=== PATIENT | female | born 1945 | race Caucasian/White ===

== ENCOUNTER 2022-04-16 20:20 | Observation (INO) | payer MEDICARE, SELFPAY ==
[2022-04-16 20:05] VITALS: BP 215/73; PULSE 67; RESP 18; TEMP 36.7; O2SAT 100
[2022-04-16 20:21] VITALS: PULSE 63; BMI 25.5
--- NOTE | 2022-04-16 20:57 | HP.PCM.HOS_ITS ---
HPI - General General Date of Admission: 04/16/22 Date of Service: 04/16/22 Chief Complaint: Vertigo HPI Alida CAMPA, is a 76 F with a significant history of hypertension; diabetes mellitus; and Vertigo who presents to the emergency department with multiple episodes of Vertigo that started a day before presentation. Patient presented to [facility] emergency department where she was transferred to our hospital for an MRI. Reportedly a day before her presentation she had 2 episodes of Vertigo and the day of presentation she also had another 2 episodes of Vertigo. Her episodes of vertigo occurs irrelevant of her standing or sitting. Of note while in bed at [facility] emergency ED in the hospital bed she had Vertigo. Associated with her Vertigo is mild nausea and headache. She denies any aggravating or ameliorating factor to her Vertigo. She reported years ago she had a Vertigo and was placed on meclizine. She was on meclizine at home but she thinks it might have . [facility] Medical History Diabetes HTN (hypertension) Vertigo Home Medications aspirin 81 mg tablet 81 mg PO DAILY 04/16/22 [History Last Taken Unknown] atenolol 50 mg tablet 100 mg PO DAILY Hypertension 04/16/22 [History Last Taken Unknown] dulaglutide 0.75 mg/0.5 mL subcutaneous pen injector (Trulicity) 0.75 mg subcut QWEEK 04/16/22 [History Last Taken Unknown] dupilumab 04/16/22 [History Last Taken Unknown] ferrous gluconate 324 mg (38 mg iron) tablet 324 mg PO DAILY 04/16/22 [History Last Taken Unknown] furosemide 20 mg tablet 20 mg PO DAILY Hypertension 04/16/22 [History Last Taken Unknown] glipizide 5 mg tablet 7.5 mg PO BID Diabetes 04/16/22 [History Last Taken Unknown] levothyroxine 125 mcg tablet 125 mcg PO DAILY Hypothyroidism 04/16/22 [History Last Taken Unknown] lisinopril 10 mg tablet 10 mg PO BID 04/16/22 [History Last Taken Unknown] metformin 1,000 mg tablet 1,000 mg PO BID Diabetes 04/16/22 [History Last Taken Unknown] simvastatin 80 mg tablet 80 mg PO DAILY Hyperlipidemia 04/16/22 [History Last Taken Unknown] Allergy/AdvReac Type Severity Reaction Status Date / Time Penicillins Allergy Hives Verified 04/16/22 20:47 Sulfa (Sulfonamide Allergy Anaphylaxis Verified 04/16/22 20:47 Antibiotics) Family History Other Cancer Diabetes Surgical History H/O knee surgery History of partial hysterectomy History of tonsillectomy Social History Smoking Status: Former smoker ROS ROS Narrative Pertinent positives and pertinent negatives as noted in HPI. All other systems were reviewed and are negative Vital Signs Vital Signs Vital Signs: Weight Weight: 59.3 kg Body Mass Index (BMI) 25.5 Physical Exam Narrative Physical exam: General: Well-nourished, well-developed. Head: Normocephalic, atraumatic, no tenderness Eyes: Vision is grossly intact. EOMI ENT, no trauma, moist mucous membranes, no rhinorrhea Neck: Nontender, full range of motion. CVS: Regular rate and rhythm. S1-S2 present. No murmur, gallop or rub. Respiratory : clear to auscultation bilaterally, chest wall nontender, no wheezing Abdomen: Soft, nontender, nondistended, normal bowel sounds, no masses : Deferred Back: Nontender, no CVA tenderness, no midline spinal tenderness, deformities, step-offs Extremities: Nontender full range of motion, no trauma Skin: Normal color, no trauma, abrasions Neuro: Alert, oriented, cranial nerves II through XII grossly intact. Ramses- Hallpike maneuver negative Psychiatry: Normal mood. Normal affect. Not depressed. Not anxious. Assessment & Plan Assessment/Plan (1) Vertigo: (2) Diabetes: (3) HTN (hypertension): PLAN: Plan Vertigo Order MRI and MRA of head and neck PRN meclizine ordered Serial NINDS NIH Scale ordered Negative CT at the outside hospital ED. CT head was independently reviewed. No acute process noted. No bleed noted. Lipid profile and A1c ordered. Home Daily aspirin statin continued Permissive hypertension. Control blood pressure with labetalol for systolic blood pressure of more than 220 or diastolic blood pressure of more than 120. MRI/MRA of head; brain; and neck. Hypertension Blood pressure is not within goal Home blood pressure managed head secondary to permissive hypertension. As needed hydralazine and labetalol for blood pressure control per stroke protocol. Diabetes mellitus Review of transfer records showed glucose of 295 Check A1C Monitor Accu-Cheks Correction scale insulin ordered. Glipizide continued. DVT Prophylaxis: Ordered Charges/Coding Visit Charges OBSV E&M: 28588 Initial observation care L3
[2022-04-16 22:00] VITALS: BP 198/57; PULSE 70; RESP 18; TEMP 36.7; O2SAT 98
[2022-04-16 23:00] VITALS: PULSE 66
[2022-04-16] MEDS: Insulin Lispro 100 UNIT/ML INSULN.PEN SC (23:17)
[2022-04-16] MEDS: Atorvastatin Calcium 40 MG Tablet PO (23:18)
[2022-04-17] VITALS (8 sets, daily range): BP systolic 150–186; BP diastolic 64–70; PULSE 56–64; RESP 16–20; TEMP 36.3–36.8; O2SAT 98–99; BMI 25.5
[2022-04-17 01:00] LABS: Bedside Glucose 241 mg/dL (74-106)
[2022-04-17] MEDS: Levothyroxine 125 MCG Tablet PO (06:15)
[2022-04-17 06:40] LABS: Bedside Glucose 144 mg/dL (74-106)
[2022-04-17 07:29] LABS: Absolute Lymphocyte Count 1.95 X10^3/uL (0.83-4.51); Absolute Neutrophil Count 3.4 X10^3/uL (2.0-7.7); Basophil# 0.05 X10^3/uL; Basophil% 0.7 % (0-1); Eosinophil# 0.35 X10^3/uL; Eosinophils% 5.2 % (0-5); Hematocrit 30.6 % (37-47); Lymphocyte # 1.95 X10^3/ul (0.83-4.51); Lymphocyte % 29.1 % (19-41); Mean Corp Hgb Conc 32.7 g/dL (32-36); Mean Corpuscular Hgb 28.7 pg (27.0-32.0); Mean Corpuscular Volume 87.9 fL (81-99); Mean Platelet Vol. 10.5 fl (6.2-12.0); Monocyte# 0.88 X10^3/uL; Monocyte% 13.1 % (0-10); NRBC Flagged by Analyzer 0 % (0-5); Neutrophil # 3.44 X10^3/uL (2.7-7.7); Neutrophil % 51.5 % (47-70); Platelet Count 204 K/mm3 (150-450); RBC Distribution Width CV 14.2 % (11.6-14.6); Red Blood Count 3.48 M/mm3 (4.2-5.4); White Blood Count 6.7 K/mm3 (4.4-11.0)
[2022-04-17 07:52] LABS: Anion Gap 7 (5-15); BUN 28 mg/dL (7-18); BUN/Creat Ratio 23.3 RATIO (10-20); Calcium,Total 9.2 mg/dL (8.5-10.1); Chloride 107 mmol/L (98-107); Cholesterol 171 mg/dL (200); EST Glomerular Filtration Rate 46 mL/min (>60); Est Glom Filt Rate - Afr Amer 56 mL/min (>60); Estimated Creatinine Clearance 27.75 ml/min; Glucose 138 mg/dL (74-106); High Density Lipoprotein 49 mg/dL; Potassium 4.6 mmol/L (3.5-5.1); Sodium Level 143 mmol/L (136-145); Triglycerides 161 mg/dL; Very Low Density Lipoprotein 32 mg/dL (5-40)
[2022-04-17 08:07] LABS: Hemoglobin A1c 7.3 % (3.8-5.6)
[2022-04-17] MEDS: Aspirin 81 MG TAB.CHEW PO (08:25)
[2022-04-17] MEDS: glipiZIDE 5 MG Tablet 7.5 MG PO ×2 (08:25→16:45)
[2022-04-17] MEDS: Furosemide 20 MG Tablet PO (08:25)
--- NOTE | 2022-04-17 09:59 | NURSING ---
Pt just updates this nurse that she had another dizzy spell about 5 minutes after 0900... but it doesn't last long. This nurse explains to pt to notify nurse when next one happens right away. Pt demonstrates understanding and states that she will
--- NOTE | 2022-04-17 10:50 | MRI_ITS ---
STUDY: MRA OF THE HEAD WITHOUT CONTRAST REASON FOR EXAM: Female, 76 years old. CVA TECHNIQUE: 3-D [id number] (TOF) imaging was performed with MIPs. The study was performed unenhanced. COMPARISON: MRI of the brain dated April 17, 2022 FINDINGS: Normal bilateral petrous carotid arteries. There is atheromatous plaque formation of the right cavernous carotid artery, with a mild stenosis (less than 50%). There is atheromatous plaque formation of the left cavernous carotid artery, with a mild stenosis (less than 50%). Normal right A1 segments of the anterior cerebral artery. Normal left A1 segments of the anterior cerebral artery. Normal intact anterior communicating artery (ACOM). Normal bilateral A2 segments of the anterior cerebral arteries. Normal right M1 and M2 segments of the middle cerebral arteries, with a normal M1 bifurcation. Normal left M1 and M2 segments of the middle cerebral arteries, with a normal M1 bifurcation. There is non-visualization of the right posterior communicating artery (PCOM). There is a persistent origin of the left posterior cerebral artery with absence of the P1 segment of the left posterior cerebral artery. There is a small atretic right vertebral artery with a dominant left vertebral artery. Normal basilar artery with a normal basilar bifurcation. The visualized bilateral superior cerebellar (SCA) arteries are normal. Normal bilateral P1, P2 and visualized P3 segments of the posterior cerebral arteries. There is no demonstrated aneurysm of the [place]. There is no major vessel occlusion or hemodynamically significant stenosis. MRI/MRA Head ONLY without Contrast IMPRESSION: 1. There is no demonstrated aneurysm of the [place]. There is no major vessel occlusion or hemodynamically significant stenosis. Electronically Signed: Sebas Alba MD at 13:09 EDT ,
--- NOTE | 2022-04-17 11:05 | MRI_ITS ---
STUDY: MRI BRAIN WITHOUT CONTRAST REASON FOR EXAM: Female, 76 years old. cva Other, Vertigo x 2-3 days. No previous imaging TECHNIQUE: Standardized multiplanar fat and water weighted pulse sequences were obtained. COMPARISON: None. FINDINGS: There is mild cerebral atrophy with widening of the extra-axial spaces and ventricular dilatation. There are a limited number of small white matter hyperintensities, distributed throughout the deep white matter tracts of the cerebral hemispheres, consistent with mild chronic white matter ischemic changes. There is no evidence for recent intracranial ischemia or other cause of cytotoxic edema on diffusion weighted imaging (DWI). Normal T2* images of the brain without demonstrated susceptibility artifact. There is no demonstrated hemosiderin stain. Normal bilateral basal ganglia. Normal thalami. There is no extra-axial fluid accumulation. Normal flow voids within the major intracranial circulation suggesting patency by spin echo criteria. Normal sella turcica, pituitary gland, infundibular stalk, optic chiasm and hypothalamus. Normal tectal plate and pineal gland. Normal midbrain, gonzález and medulla. Normal cerebellum. Normal basal cisterns. Normal bilateral temporal bones. Normal bilateral internal auditory canals. No demonstrated orbital abnormality, within the constraints of a routine brain study. Normal visualized paranasal sinuses. Normal calvarium and skull base. Normal visualized soft tissue structures. Normal visualized upper cervical spine. MRI/Brain without Contrast IMPRESSION: 1. Involutional and chronic ischemic changes of the brain, as described above. 2. No demonstrated acute infarct or intracranial hemorrhage Electronically Signed: Sebas Alba MD at 13:07 EDT ,
--- NOTE | 2022-04-17 11:30 | MRI_ITS ---
STUDY: MRA NECK WITHOUT CONTRAST REASON FOR EXAM: Female, 76 years old. CVA TECHNIQUE: Source images were obtained, MIPs were performed. The study was performed unenhanced. COMPARISON: None. FINDINGS: RIGHT CAROTID ARTERIES: Normal right common carotid artery (CCA). Normal right common carotid bulb. Normal origin of the right internal carotid (ICA) artery without a hemodynamically significant stenosis. Normal visualized cervical portion of the right internal carotid artery. Normal origin of the right external carotid artery (ECA). LEFT CAROTID ARTERIES: Normal left common carotid artery (CCA). There is mild atherosclerotic plaque formation with minimal narrowing of the left carotid bulb. Normal origin of the left internal carotid (ICA) artery without a hemodynamically significant stenosis. Normal visualized cervical portion of the left internal carotid artery. Normal origin of the left external carotid artery (ECA). VERTEBRAL ARTERIES: There is antegrade flow within the bilateral vertebral arteries with a small right vertebral artery, and a dominant left vertebral artery. MRI/MRA Neck without Contrast IMPRESSION: 1. No hemodynamically significant stenosis or occlusion of the bilateral cervical carotid and vertebral arteries. Electronically Signed: Sebas Alba MD at 13:11 EDT ,
[2022-04-17] MEDS: Insulin Lispro 100 UNIT/ML INSULN.PEN SC ×2 (12:12→16:44)
[2022-04-17] MEDS: Ferrous Gluconate 324 MG Tablet PO (12:12)
[2022-04-17 12:36] LABS: Bedside Glucose 250 mg/dL (74-106)
--- NOTE | 2022-04-17 13:43 | DCINST_ITS ---
Discharge Instructions Diet Discharge Diet: Low fat / Low cholesterol and 2000 mg Sodium Diet Activity Discharge Activity: Return to Normal Activity Follow Up Care Test Results: Test results from this visit will be discussed in further detail at your follow- up appointment, if applicable. Discharge Plan Admission Admit Date/Time: 04/16/22 20:20 Primary Reason for Your Visit: Vertigo Attending Provider: Brittani Echevarria Primary Care Provider: Sulma Peña Consulting Providers: Ethan Camp Instructions Additional Instructions / Restrictions: Continue to take your medications as prescribed Follow-up with your primary care doctor within 1week Discharge Orders/Prescriptions Prescriptions: New meclizine 25 mg Tablet 25 mg PO TID PRN PRN (Reason: Vertigo) 7 Days Qty: 21 0RF Continued simvastatin 80 mg tablet 80 mg PO DAILY Label Comments: TAKE 1 TABLET BY MOUTH DAILY AT BEDTIME metformin 1,000 mg tablet 1,000 mg PO BID Label Comments: Take 1 tablet by mouth twice daily with meals. levothyroxine 125 mcg tablet 125 mcg PO DAILY Label Comments: Take 1 tablet by mouth once daily. lisinopril 10 mg tablet 10 mg PO BID Label Comments: Take 1 tablet by mouth twice daily. aspirin 81 mg Tablet 81 mg PO DAILY furosemide 20 mg tablet 20 mg PO DAILY Label Comments: TAKE 1 TABLET BY MOUTH ONCE DAILY atenolol 50 mg tablet 100 mg PO DAILY Label Comments: TAKE 2 TABLETS BY MOUTH ONCE DAILY glipizide 5 mg tablet 7.5 mg PO BID Label Comments: TAKE 1 & 1/2 (ONE AND ONE-HALF) TABLETS BY MOUTH TWICE DAILY BEFORE MEALS ferrous gluconate 324 mg (38 mg iron) Tablet 324 mg PO DAILY Trulicity 0.75 mg/0.5 mL Pen Injector 0.75 mg subcut QWEEK Rx Instructions: 0.75 mg subcutaneously dupilumab Referrals / Follow Up: Sulma Peña DO [Primary Care Provider] - Within 1 Week Disposition Disposition (needs filled in before D/C Order can be placed): Home, Self Care
--- NOTE | 2022-04-17 13:51 | DS.PCM_ITS ---
Providers Date of Admission: 04/16/22 Date of Discharge: 04/17/22 Primary Care Physician: Dr. Sulma Peña, DO Reason For Visit: VERTIGO Diagnosis Discharge Diagnosis (1) Vertigo: Status: Acute Code(s): R42 - Dizziness and giddiness (2) Diabetes: Status: Acute Code(s): E11.9 - Type 2 diabetes mellitus without complications (3) HTN (hypertension): Status: Chronic Code(s): I10 - Essential (primary) hypertension Medications at Discharge Home Medications aspirin 81 mg tablet 81 mg PO DAILY 04/16/22 atenolol 50 mg tablet 100 mg PO DAILY Hypertension 04/16/22 dulaglutide 0.75 mg/0.5 mL subcutaneous pen injector (Trulicity) 0.75 mg subcut QWEEK 04/16/22 dupilumab 04/16/22 ferrous gluconate 324 mg (38 mg iron) tablet 324 mg PO DAILY 04/16/22 furosemide 20 mg tablet 20 mg PO DAILY Hypertension 04/16/22 glipizide 5 mg tablet 7.5 mg PO BID Diabetes 04/16/22 levothyroxine 125 mcg tablet 125 mcg PO DAILY Hypothyroidism 04/16/22 lisinopril 10 mg tablet 10 mg PO BID 04/16/22 metformin 1,000 mg tablet 1,000 mg PO BID Diabetes 04/16/22 simvastatin 80 mg tablet 80 mg PO DAILY Hyperlipidemia 04/16/22 meclizine 25 mg tablet 25 mg PO TID PRN PRN Vertigo 7 days #21 tabs 04/17/22 Hospital Course Operations None Procedures None Summary of Care Provided Minutes Spent on Discharge: 35 Hospital Course: 74-year-old with past medical history hypertension, type II DM, vertigo who presented from an outside hospital with multiple episodes of vertigo. Patient reported that she had vertigo intermittently that was not related to position or change in her head. This is associated with nausea and headache. She was admitted to the progressive care unit and monitored. She underwent MRI of the brain as well as MRA of the head and neck that were unremarkable. Her blood pressure medication were held and permissive hypertension was allowed. Patient was resumed on her meds after acute stroke was ruled out from MRI. She was discharged on meclizine. She will follow-up in the outpatient with her primary care doctor. Physical Exam Narrative Physical exam: General: Alert, Oriented x3, Cooperative, No apparent distress HEENT: Atraumatic Oral: Moist Mucosa Neck: Supple Lungs: Clear to auscultation Cardiovascular: HS I+II, regular, no murmurs Abdomen: Bowel Sounds Present, Soft, Non Tender Extremities: No edema Skin: No rashes, No breakdown Neurological: Grossly intact Psych/Mental Status: Appropriate Weight / BMI Weight Weight: 59.3 kg Body Mass Index (BMI) 25.5 ABG / Lab / Microbiology Data Result Diagrams: 04/17/22 06:56 04/17/22 06:56 Laboratory: Laboratory Results - last 24 hr 04/16/22 23:13: POC Glucose 241 H 04/17/22 06:10: POC Glucose 144 H 04/17/22 06:56: WBC 6.7, RBC 3.48 L, Hgb 10.0 L, Hct 30.6 L, MCV 87.9, MCH 28.7, MCHC 32.7, RDW Std Deviation 45.0 H, RDW Coeff of Dasha 14.2, Plt Count 204, MPV 10.5, Immature Gran % (Auto) 0.400, Neut % (Auto) 51.5, Lymph % (Auto) 29.1, [place] % (Auto) 13.1 H, Eos % (Auto) 5.2 H, Baso % (Auto) 0.7, Absolute Neuts (auto) 3.4, Absolute Lymphs (auto) 1.95, Nucleated RBC % 0 04/17/22 06:56: Sodium 143, Potassium 4.6, Chloride 107, Carbon Dioxide 29.0, Anion Gap 7, BUN 28 H, Creatinine 1.20 H, Estim Creat Clear Calc 27.75, Est GFR (MDRD) Af Amer 56 L, Est GFR (MDRD) Non-Af 46 L, BUN/Creatinine Ratio 23.3 H, Glucose 138 H, Calcium 9.2, Triglycerides 161, Cholesterol 171, LDL Cholesterol 90, VLDL Cholesterol 32, HDL Cholesterol 49 04/17/22 06:56: Hemoglobin A1c 7.3 H 04/17/22 12:11: POC Glucose 250 H Radiography Diagnostic Testing: Radiology Impression Head MRA 04/17/22 10:50 IMPRESSION: 1. There is no demonstrated aneurysm of the [place]. There is no major vessel occlusion or hemodynamically significant stenosis. Electronically Signed: Sebas Alba MD at 13:09 EDT , Brain MRI 04/17/22 11:05 IMPRESSION: 1. Involutional and chronic ischemic changes of the brain, as described above. 2. No demonstrated acute infarct or intracranial hemorrhage Electronically Signed: Sebas Alba MD at 13:07 EDT , Neck MRA 04/17/22 11:30 IMPRESSION: 1. No hemodynamically significant stenosis or occlusion of the bilateral cervical carotid and vertebral arteries. Electronically Signed: Sebas Alba MD at 13:11 EDT , D/C Instructions Discharge Diet: Low fat / Low cholesterol and 2000 mg Sodium Diet Meaningful Use Info Meaningful Use Diagnoses (Choose all that apply): None applicable Discharge Plan Admission Admit Date/Time: 04/16/22 20:20 Primary Reason for Your Visit: Vertigo Attending Provider: Brittani Echevarria Primary Care Provider: Sulma Peña Consulting Providers: Ethan Camp Instructions Additional Instructions / Restrictions: Continue to take your medications as prescribed Follow-up with your primary care doctor within 1week Discharge Orders/Prescriptions Prescriptions: New meclizine 25 mg Tablet 25 mg PO TID PRN PRN (Reason: Vertigo) 7 Days Qty: 21 0RF Continued simvastatin 80 mg tablet 80 mg PO DAILY Label Comments: TAKE 1 TABLET BY MOUTH DAILY AT BEDTIME metformin 1,000 mg tablet 1,000 mg PO BID Label Comments: Take 1 tablet by mouth twice daily with meals. levothyroxine 125 mcg tablet 125 mcg PO DAILY Label Comments: Take 1 tablet by mouth once daily. lisinopril 10 mg tablet 10 mg PO BID Label Comments: Take 1 tablet by mouth twice daily. aspirin 81 mg Tablet 81 mg PO DAILY furosemide 20 mg tablet 20 mg PO DAILY Label Comments: TAKE 1 TABLET BY MOUTH ONCE DAILY atenolol 50 mg tablet 100 mg PO DAILY Label Comments: TAKE 2 TABLETS BY MOUTH ONCE DAILY glipizide 5 mg tablet 7.5 mg PO BID Label Comments: TAKE 1 & 1/2 (ONE AND ONE-HALF) TABLETS BY MOUTH TWICE DAILY BEFORE MEALS ferrous gluconate 324 mg (38 mg iron) Tablet 324 mg PO DAILY Trulicity 0.75 mg/0.5 mL Pen Injector 0.75 mg subcut QWEEK Rx Instructions: 0.75 mg subcutaneously dupilumab Referrals / Follow Up: Sulma Peña DO [Primary Care Provider] - Within 1 Week Disposition Disposition (needs filled in before D/C Order can be placed): Home, Self Care Charges/Coding Visit Charges OBSV E&M: 24372 Observation care discharge
[2022-04-17] MEDS: Lisinopril 10 MG Tablet PO (14:26)
[2022-04-17] MEDS: Atenolol 100 MG Tablet PO (14:26)
[2022-04-17 17:05] LABS: Bedside Glucose 206 mg/dL (74-106)
== END 2022-04-17 13:43 | disposition home or self-care (01) ==
PROVIDERS: Hospitalist; Admitting Provider Internal Medicine; PCP Family Medicine; Visit Provider Internal Medicine
DX: R42 Dizziness and giddiness (principal); E11.9 Type 2 diabetes mellitus without complications; Z87.891 Personal history of nicotine dependence; Z79.82 Long term (current) use of aspirin; I10 Essential (primary) hypertension; Z79.899 Other long term (current) drug therapy; Z79.84 Long term (current) use of oral hypoglycemic drugs
CPT/HCPCS: 36415; 70544; 70547; 70551; 80048; 80061; 82962; 83036; 85025; 94762; 97802